=== PATIENT | male | born 1995 | race Two or more races ===

== ENCOUNTER → 2017-07-28 | Emergency (ER) | payer OTHER ==
[~2017-07-28] VITALS: Ht 167.6 cm; Wt 54.4 kg
== END | disposition home or self-care (01) ==
LOC: ER 06:28
DX: S01.81XA Laceration without foreign body of other part of head, initial encounter (principal); S01.111A Laceration without foreign body of right eyelid and periocular area, initial encounter; V49.9XXA Car occupant (driver) (passenger) injured in unspecified traffic accident, initial encounter; Y93.89 Activity, other specified; Y92.488 Other paved roadways as the place of occurrence of the external cause; Y99.8 Other external cause status

== ENCOUNTER → 2017-08-05 | Emergency (ER) | payer OTHER | END | disposition left against medical advice (07) | LOC: ER 10:46 | DX: Z53.20 Procedure and treatment not carried out because of patient's decision for unspecified reasons (principal) ==